=== PATIENT | female | born 1970 | race Two or more races ===

== ENCOUNTER 2022-02-16 21:50 | Emergency (ER) | payer MEDICAID ==
[~2022-02-16] VITALS: Ht 165.1 cm; Wt 65.0 kg
[2022-02-17] MEDS ORDERED: LORazepam 2MG/ML-1ML VIAL IM ONE (03:15)
[2022-02-17 03:42] LABS: Basophils # (auto) 0.1 10 ^3/uL (0-0.2); Basophils % (auto) 0.8 % (0.0-2.0); Eosinophils # (auto) 0 10 ^3/uL (0-0.8); Eosinophils % (auto) 0.2 % (0.0-7.0); Hematocrit 37.4 % (36.0-46.0); Hemoglobin 12.2 g/dL (12.2-16.2); Lymphocytes # (auto) 2.2 10 ^3/uL (0.4-5.4); Lymphocytes % (auto) 24.3 % (10.0-50.0); Mean Corpuscular Hemoglobin 30.7 pg (28.0-32.0); Mean Corpuscular Hgb Conc. 32.6 g/dL (32.0-36.0); Mean Corpuscular Volume 94.2 fL (80.0-100.0); Monocytes # (auto) 0.6 10 ^3/uL (0-1.3); Neutrophils % (auto) 67.7 % (37.0-80.0); Red Blood Cells 3.97 10^6/uL (4.0-5.20); Red Cell Distribution Width 13.6 % (11.8-14.3); White Blood Cell 8.9 10^3/uL (4.4-10.8)
[2022-02-17 05:36] LABS: Potassium 4.2 mmol/L (3.5-5.1)
[2022-02-17 05:39] LABS: BUN/Creatinine Ratio 17.3; Calcium 9.7 mg/dL (8.5-10.1)
[2022-02-17 05:40] LABS: Albumin 4.1 g/dL (3.4-5.0); Bilirubin, Total 0.4 mg/dL (0.2-1.0); Total Protein 7.6 g/dL (6.4-8.2)
[2022-02-17] MEDS ORDERED: IBUPROFEN 800 MG TAB PO ONE (05:45)
[2022-02-17 09:15] VITALS: BP 142/82
== END 2022-02-17 09:31 | disposition home or self-care (01) ==
LOC: ER 21:50 → EDBD 21:50 → ER 02-17 09:24
DX: F41.9 Anxiety disorder, unspecified (principal); F10.129 Alcohol abuse with intoxication, unspecified; R42 Dizziness and giddiness; R51.9 Headache, unspecified; Y90.9 Presence of alcohol in blood, level not specified
CPT/HCPCS: 36415; 70450; 80053; 84484; 85025